=== PATIENT | male | born 1975 | race Caucasian/White ===

== ENCOUNTER 2016-10-21 08:42 | Day surgery (SDC) | payer BC ==
[~2016-10-21] VITALS: Ht 196.8 cm; Wt 93.3 kg
[~2016-10-21 08:42] MED LIST: ALFUZOSIN HCL E10 MG PO; BACLOFEN10 MG PO; BACLOFEN20 MG PO; CELEBREX200 MG PO; DETROL LA4 MG PO; FEXOFENADINE H180 MG PO
--- NOTE | 2016-10-21 09:05 | NUR ---
PATIENT ASSESSMENT AND MED/ALLERGY REVIEW COMPLETE. VITALS STABLE. CONSENT SIGNED BY PATIENT AND WITNESSED BY RN. IV STARTED IN R HAND WITH 1 ATTEMPT. PREOP INSTRUCTIONS DISCUSSED. QUESTIONS ENCOURAGED AND ANSWERED BY RN. WILL CONTINUE TO MONITOR.
[2016-10-21] MEDS ORDERED: NORCO1 TA1 PO (11:40)
--- NOTE | 2016-10-21 11:41 | Provider's Discharge Care Plan ---
Problem, Goal, Plan Problem List 1. H/O right inguinal hernia repair
--- NOTE | 2016-10-21 11:41 | Provider's Discharge Care Plan ---
Problem, Goal, Plan Problem List 1. H/O right inguinal hernia repair
--- NOTE | 2016-10-21 11:57 | NUR ---
PT IS AWAKE AND ALERT. PT DENIES NAUSEA OR PAIN. VSS. PT WAS OFFERED WARM BLANKET FOR COMFORT. PT STATES HE IS WARM AND COMFORTABLE. ABOMEND IS SOFT. DRESSING IS CLEAN AND DRY.
--- NOTE | 2016-10-21 12:23 | NUR ---
PATIENT BACK FROM SURGERY. VITALS STABLE. DRESSINGS CLEAN, DRY AND ITNACT. PATIENT DENIES PAIN AT THIS TIME. TOLERATING PO INTAKE WITHOUT NAUSEA. WILL CONTINUE TO MONITOR
--- NOTE | 2016-10-21 13:43 | OPERATIVE REPORT ---
DATE OF SURGERY: 10/21/2016 SURGEON: Maicol Wu MD PREOPERATIVE DIAGNOSIS: 1. Right inguinal hernia POSTOPERATIVE DIAGNOSIS: 1. Right inguinal hernia PROCEDURE PERFORMED: 1. Right inguinal herniorrhaphy ANESTHESIA: General. INDICATIONS: The patient is a 40-year-old man with a right groin bulge and right groin pain. SURGICAL TECHNIQUE: The patient was taken to the operating room, where a general anesthetic was administered and the patient prepped and draped in the usual sterile fashion. A local anesthetic of 0.5% Marcaine with epinephrine was infiltrated in the operative site. A transverse incision was made over the internal ring and carried down through skin and subcutaneous tissue with sharp and electrocautery dissection. Hemostasis was obtained with 3-0 Vicryl ligatures and electrocautery. The external oblique was split along its fibers and the underlying ilioinguinal nerve identified and protected. The cord was found to contain herniated preperitoneal fat which was dissected away from the cord structures, back to the internal ring. The cord was skeletonized and examined, and there was no peritoneal sac protruding. The internal ring was dilated. After ligation and removal of the cord lipoma, the internal ring was narrowed by imbricating the transversalis fascia using 2 layers of running 2-0 polypropylene suture, flattening out the groin floor. A piece of woven polypropylene mesh was tailored to suit the inguinal floor and was sewn along its edges with running 3-0 Prolene suture. The lateral edge of the mesh was split and brought up around the cord structures, and a single [id number] 2-0 Vicryl was placed laterally. The ends of the mesh were tucked back under external oblique fascia. After inspection for hemostasis and irrigation, the external oblique was closed with running 3-0 Vicryl. The skin was closed with running subcuticular 4-0 Vicryl suture and with Steri-Strips. Dressings were placed. The patient left in stable condition. No intraoperative complications were encountered.
--- NOTE | 2016-10-21 13:57 | NUR ---
PATIENT DEPARTED SCU WITH HIS AT 1311. VITALS REMAIN STABLE. DRESSING C,D,I. TOLERATING PO INTAKE WITHOUT NAUSEA. CONTINUES TO DENY PAIN. DISCHARGE INSTRUCTIONS DISCUSSED, INCLUDING WOUND CARE, PAIN MANAGEMENT AND SIGNS/SYMPTOMS TO REPORT. PATIENT AND VERBALIZED GOOD UNDERSTANDING OF INSTRUCTIONS UPON DISCHARGE
[2016-10-21 14:06] VITALS: BP 115/79
== END 2016-10-21 13:11 | disposition home or self-care (01) ==
LOC: OR SRH 08:42 → SCU SRH 08:42 → OR SRH 09:45
PROVIDERS: Surgery
PROC: 0YU50JZ Supplement Right Inguinal Region with Synthetic Substitute, Open Approach (ICD-10-PCS; principal; 2016-10-21 09:45)
DX: K40.90 Unilateral inguinal hernia, without obstruction or gangrene, not specified as recurrent (principal); D17.6 Benign lipomatous neoplasm of spermatic cord; G35 Multiple sclerosis
CPT/HCPCS: 29229; 29240; 50004; 60001; 70002; 80212; 80575; 82572; 84038; 84519; 87058